=== PATIENT | male | born 1960 | race Caucasian/White ===

== ENCOUNTER 2018-06-14 06:19 | Day surgery (SDC) | payer SELFPAY ==
[2018-06-03 11:47] VITALS: BMI 23.1
[2018-06-14] MEDS ORDERED: HEPARIN NA (PORCINE) 5,000 UNITS/ML 1ML VIAL ONE (06:57)
[2018-06-14] MEDS ORDERED: MIDAZOLAM HCL 2 MG/2 ML SINGLE DOSE VIAL ONE (07:09)
[2018-06-14] MEDS ORDERED: ROCURONIUM BROMIDE 50 MG/5 ML VIAL ONE ×2 (07:11→07:14)
[2018-06-14] MEDS ORDERED: PROPOFOL 20 ML ONE ×2 (07:11→08:39)
[2018-06-14] MEDS ORDERED: LIDOCAINE HCL/PF 2% SDV 5ML VIAL ONE (07:11)
[2018-06-14] MEDS ORDERED: SUCCINYLCHOLINE CHLORIDE 200 MG/10 ML VIAL ONE ×2 (07:15→10:55)
[2018-06-14] MEDS ORDERED: SEVOFLURANE 250 ML BTL ONE (07:20)
[2018-06-14] MEDS ORDERED: DESFLURANE GAS 240 ML BOTTLE IH ONE (07:20)
[2018-06-14] MEDS ORDERED: ONDANSETRON 4 MG/2 ML VIAL IVPUSH PRN (07:30)
[2018-06-14] MEDS ORDERED: LACTATED RINGERS SOLUTION 1,000 ML IV SCH ×2 (07:30→16:15)
[2018-06-14] MEDS ORDERED: ePHEDrine SULFATE 50 MG/1 ML AMPULE ONE (08:54)
[2018-06-14] MEDS ORDERED: ceFAZolin SODIUM 1 GM VIAL ONE ×2 (08:55→14:06)
[2018-06-14] MEDS ORDERED: DEXAMETHASONE SOD PHOSPHATE 4 MG/1 ML VIAL ONE ×3 (09:13→14:57)
[2018-06-14] MEDS ORDERED: ONDANSETRON 4 MG/2 ML VIAL ONE ×3 (09:13→14:57)
[2018-06-14] MEDS ORDERED: BUPIVACAINE LIPOSOME/PF (EXPAREL) 266 MG/20 ML VIAL ONE (10:15)
[2018-06-14] MEDS ORDERED: BUPIVACAINE HCL/PF 2.5 MG/ML - 30 ML VIAL IJ ONE (10:16)
[2018-06-14] MEDS ORDERED: HYDROmorphone HCL/PF 1 MG/ML AMP ONE ×2 (11:09→13:36)
[2018-06-14] MEDS ORDERED: NITROGLYCERIN 2% OINTMENT - 1GM PACKET TD ONE ×2 (14:09→15:34)
[2018-06-14] MEDS ORDERED: oxyCODONE HCL 5 MG TABLET PO PRN ×3 (15:34→16:12)
[2018-06-14] MEDS ORDERED: BUPIVACAINE LIPOSOME/PF (EXPAREL) 266 MG/20 ML VIAL IJ ONE (15:34)
[2018-06-14] MEDS ORDERED: BUPIVACAINE HCL/PF 0.25% (2.5MG/ML) 10 ML VIAL IJ ONE (15:34)
[2018-06-14] MEDS ORDERED: ACETAMINOPHEN 325 MG TABLET (FP) PO SCH (15:45)
--- NOTE | 2018-06-14 16:10 | OP ---
Operative Note - Note: Operative Date: 06/14/18 Pre-Operative Diagnosis: Cosmetic Operation: Circumferential lower body lift, bilateral gynecomastia reduction Findings: as dictated Implants: none Post-Operative Diagnosis: Same as Pre-op Surgeon: James Chairez Seaweed Harvester: Zachary Finley Anesthesiologist/PREDATORY GAME HUNTER: Anthony Capps Anesthesia: General, Local (60cc total Exparel with .25% Marcaine injected to incision sites ) Specimens Removed: skin/subcutaneous fat Estimated Blood Loss (mls): 100 (ml) Drains & Tubes with Location: 3 SUSAN drains sutured subcutaneously (one posterior , 2 anterior) Drains, Volume Out (mls): 1,700 (ml UOP) Fluid Volume Replaced (mls): 2,300 (ml) Operative Report Dictated: Yes
[2018-06-14] MEDS ORDERED: morphine SULFATE 4 MG/ML VIAL IVPUSH PRN (16:12)
[2018-06-14] MEDS ORDERED: ONDANSETRON 4 MG/2 ML VIAL IVPB PRN (16:12)
[2018-06-14] MEDS: CEFAZOLIN 1 GM/D5W 1 GM/50 ML BAG IVPB SCH (21:00)
[2018-06-15] MEDS: CEFAZOLIN 1 GM/D5W 1 GM/50 ML BAG IVPB SCH (02:01)
[2018-06-15 06:49] VITALS: BP 111/58; PULSE 58; TEMP 99
--- NOTE | 2018-06-15 07:11 | PN ---
Progress Note (short form) - Note Progress Note: POD 1 Al tissues viable, no collections SUSAN's working well. ambulating, Pain well controled OK for discharge once meets criteria
[2018-06-15] MEDS ORDERED: CEFAZOLIN 1 GM/D5W 1 GM/50 ML BAG IVPB SCH (07:45)
[2018-06-15] MEDS ORDERED: HEPARIN NA (PORCINE) 5,000 UNITS/ML 1ML VIAL SQ SCH (08:00)
[2018-06-15] MEDS ORDERED: LISINOPRIL 10 MG TABLET (FP) PO SCH (10:00)
--- NOTE | 2018-06-15 10:28 | OP ---
DATE OF OPERATION: 06/14/2018 TITLE OF PROCEDURE: Circumferential abdominal lipectomy with bilateral male mastopexy. ATTENDING SURGEON: James Chairez MD FREIGHT CLAIM INVESTIGATOR: ORACIO Brooke PREOPERATIVE DIAGNOSIS: Abdominal and breast deformities status post massive weight loss. POSTOPERATIVE DIAGNOSIS: Abdominal and breast deformities status post massive weight loss. DESCRIPTION OF PROCEDURE: The patient was marked in the holding area, awake and aware of all incisions and scars. All risks, benefits, and alternatives were thoroughly discussed with this patient both preoperatively in the office as well as again today, understands and agrees to proceed. Patient was given 5000 units of subcutaneous heparin preoperatively. Sequential compression stockings and TUAN hose were applied in the holding area. He was then brought to the operating room after induction of general anesthesia. He was positioned in a prone position. All appropriate positioning aids were used including chest rolls, foam padding. The position was carefully checked by surgical anesthesia and nursing teams. At the completion of this, he was then prepped and draped in the standard surgical fashion. It should be noted that a Root catheter had been placed while the patient was supine. A time-out was called. Patient, procedure, side, and sites were verified. At this point, incision was made at the planned inferior extent of the resection pattern. This was carried down to the level of the lumbar fascia. Dissection was then carried along the lumbar fascia cephalad to release existing skin folds as necessary. Lumbar perforating blood vessels were sutured ligated and Bovie cauterized. Hemostasis was meticulously achieved. The wound was copiously irrigated. Tailor-tacking was used to assess the degree of excision and the aforemarked preoperative excision was verified. Size 19 round Bryant drain was brought out through lateral extent of the incision. Single drain was adequate for the entirety of the back as it crosses the entire wound. The closure was performed with a series of interrupted buried Scarpas layer 0 Vicryl suture followed by a series of interrupted buried deep dermal 3-0 Monocryl suture followed by a running mid-dermal 3-0 Monocryl V-Loc suture. At the completion of this, the opened areas on the sides were covered with Ioban. Patient was carefully undraped and was positioned back into a supine positon back onto his hospital bed and then transferred into a supine position onto the operating table. The position was carefully checked once again. The sequential compression stockings are reconnected. Patient was prepped and draped in standard surgical fashion. The incision was then made along the infra-pectoral crease as preoperatively marked. He had been prepped and draped once again in standard surgical fashion. Dissection carried down to the level of the abdominal wall fascia. At which point, dissection was carried along the abdominal wall fascia ligating perforating blood vessels as necessary with each suture ligation and Bovie cautery at the level of the umbilicus. The umbilicus was circumcised and developed on an adequate fibrofatty stalk. Elevation was continued enough anteriorly in the midline to allow for translocation of the umbilicus. No plication was required in this case. At this point, with the patient slightly flexed, the skin was assessed for resection. The full extent of the skin resection planned was able to be performed without undue tension. This was then performed. Hemostasis was meticulously achieved, and the skin was tailor-tacked with jeannette. At this point, two size 19 round Bryant drains were brought out through various points of the incision. The right drain was in the superior aspect of the wound. The left drain was in the inferior aspect of the wound. With the skin tailor-tacked, the position of the new umbilicus was marked. Star Trek pattern was used on each of the umbilicus and the translocation skin. The umbilicus was then translocated and was secured to the defect with a series of interrupted buried deep dermal 3-0 Monocryl suture followed by a series of interrupted 4-0 nylon suture. It was pink and viable with good bleeding. The inferior notch was inset with the inferior flap from the abdominoplasty. The closure was then performed with a series of interrupted sequential fascial Scarpas layer system sutures buried using a 0 Vicryl suture followed by a series of interrupted buried deep dermal 3-0 Monocryl suture followed by a running mid-dermal V-Loc 90-day Monocryl suture. Several areas were treated additionally with 4-0 nylon skin sutures. All drains were secured with 2-0 silk drain sutures. It should be noted that a total of 20 mL of Exparel mixture was used in each the posterior wound, the anterior wound, and then the bilateral chest wounds. A total of 60 mL of the mixture was used. The mixture was 20 mL of Exparel mixed with 40 mL of 0.25% Marcaine plain. With the patient in an upright position, the breast were then reassessed with extra tension now on the skin from the abdominoplasty closure with the Marcaine required revision. Pinch test assured the appropriate markings for the inframammary incisions. At this point, a wide inframammary pedicle was developed. The nipple areolar was traced in an oval fashion. The pedicle was deepithelialized with the exception of the nipple areola. The pedicle was not undermined. It was suctioned down to the level of the chest wall. Superior skin flap on the chest was elevated cephalad enough to allow for translocation of the nipple areola. The planned oval incision for the nipple areola was then made and adequate tissue removed in order for full translocation of the nipple areola. The nipple was inset with a series of interrupted buried deep dermal 3-0 Monocryl suture followed by a running subcuticular 4-0 Monocryl suture. An additional interrupted 5-0 fast-absorbing plain gut suture was used as necessary. A lateral dog ear was excised. The inframammary incisions were then closed with a series of interrupted buried deep dermal 3-0 Monocryl suture followed by running subcuticular 3-0 Monocryl suture. The identical procedure was performed in a mirror image on the contralateral side. Nipples were pink and viable at the end of the procedure. However, prophylactically, as a matter of routine, nitropaste was placed on the nipples. All drains were placed to bulb suction, were functioning. All tissues appeared pink and viable. Patient was then dressed Steri-Strips to the abdomen and inframammary folds, Telfa to the nipples and the umbilicus, ABD gauze, and a surgical compression garment was fitted onto the patient. He was awoken from anesthesia neurovascularly intact and transferred to recovery without complications. Linette [id number]
--- NOTE | 2018-06-16 16:01 | PATH ---
Surgical Pathology Report Patient Name: TEOFILO CAMPBELL Med. Rec. #: [id number] /Age/Gender: 1960 (Age: 58) / M Account: [id number] Location: [facility] Taken: 06/14/2018 Received: 06/14/2018 Reported: 06/16/2018 Physicians: James Chairez Specimen(s) Received ABDOMEN BACK AND CHEST SKIN Clinical History Cosmetic Final Diagnosis ABDOMEN, BACK, AND CHEST, SKIN, RESECTION: PORTIONS OF SKIN WITH UNDERLYING SOFT TISSUE. NO LESION SEEN. GROSS EXAMINATION ONLY. Electronically Signed Elicia Lord M.D. Gross Description Received in formalin labeled "abdomen, back and chest," is a 960 g, 30.0 x 17.0 x 4.0 cm aggregate of multiple stratton, unoriented portions of skin with underlying soft tissue. No epidermal lesions are identified. Sectioning reveals unremarkable yellow, lobulated adipose tissue. No sections are submitted, gross only. /06/15/2018 [facility]06/15/2018
== END 2018-06-15 08:25 | disposition home or self-care (01) ==
LOC: FASU 06:19 → FM/S 17:20 → FASU 06-15 08:25
PROVIDERS: ATTEND Plastic Surgery
PROC: 0J080ZZ Alteration of Abdomen Subcutaneous Tissue and Fascia, Open Approach (ICD-10-PCS; principal; 2018-06-14 08:56)
PROC: 0H0V0ZZ Alteration of Bilateral Breast, Open Approach (ICD-10-PCS; 2018-06-14 08:56)
DX: Z41.1 Encounter for cosmetic surgery (principal); L98.7 Excessive and redundant skin and subcutaneous tissue
CPT/HCPCS: 88300-TC; 94760; J1644